=== PATIENT | male | born 1960 | race Two or more races ===

== ENCOUNTER 2017-10-01 09:31 | Emergency (ER) | payer OTHER ==
--- NOTE | 2017-10-01 11:23 | RAD ---
INDICATION: Atraumatic left foot pain and discoloration. COMPARISON: None. TECHNIQUE: 3 views of the left foot were obtained. FINDINGS: The adequately corticated bones are properly aligned. Enthesophyte is noted at the origin of the plantar fascia on the calcaneal tubercle. Joint spaces appear maintained. No fracture, dislocation or focal bony abnormality is seen. There is calcified atherosclerosis of the distal visualized portions of the posterior tibial and anterior tibial arteries as well as the dorsalis pedis artery. IMPRESSION: Normal radiograph of the left foot. If the patient's symptoms persist, follow-up imaging is recommended.
[2017-10-01 12:12] VITALS: BP 134/81
--- NOTE | 2017-10-01 15:51 | ED ---
Lower Extremity - HPI Summary HPI Summary: Patient presents to the ED with swelling to the bilateral feet x several months which is intermittent, worse after standing for long shifts and now with a slight discoloration into the L foot. He states the swelling reduces if he is not working. Denies history of PVD, PAD or cardiac history. Takes no medication. He states intermittently the feet will swell and cause some tenderness to the top of the foot. Denies pain in the sole of the foot. He is ambulating well today. VS stable and denies fevers. - History of Current Complaint Chief Complaint: EDExtremityLower Stated Complaint: FOOT INJURY Time Seen by Provider: 10/01/17 09:36 Hx Obtained From: Patient Severity Initially: Moderate Severity Currently: Moderate Pain Intensity: 1 Pain Scale Used: 0-10 Numeric Timing: Constant Location: Is Discrete @ - today at the left foot and ankle diffuse with slight swelling Associated Signs And Symptoms: Positive: Swelling, Bruising Aggravating Factor(s): Standing, Ambulation Alleviating Factor(s): Rest Able to Bear Weight: Yes - Risk Factors Gout Risk Factors: Age Over 40, Male DVT Risk Factors: Negative - Allergies/Home Medications Allergies/Adverse Reactions: Allergies Allergy/AdvReac Type Severity Reaction Status Date / Time No Known Allergies Allergy Verified 06/25/16 07:34 PMH/Surg Hx/FS Hx/Imm Hx Previously Healthy: Yes Endocrine/Hematology History: Reports: Hx Diabetes - Immunization History Hx Pertussis Vaccination: No Immunizations Up to Date: Yes Infectious Disease History: No Infectious Disease History: Denies: Traveled Outside the [place] in Last 30 Days - Social History Occupation: Employed Full-time Lives: With Family Alcohol Use: None Hx Substance Use: No Substance Use Type: Reports: None Hx Tobacco Use: No Smoking Status (MU): Never Smoked Tobacco Review of Systems Constitutional: Negative Negative: Fever, Chills, Fatigue Eyes: Negative Cardiovascular: Negative Gastrointestinal: Negative Genitourinary: Negative Positive: no symptoms reported, see HPI Positive: Arthralgia Positive: Bruising Neurological: Negative All Other Systems Reviewed And Are Negative: Yes Physical Exam Triage Information Reviewed: Yes Vital Signs On Initial Exam: Initial Vitals Temp Pulse Resp BP Pulse Ox 98.4 F 75 20 150/80 97 10/01/17 09:33 10/01/17 09:33 10/01/17 09:33 10/01/17 09:33 10/01/17 09:33 Vital Signs Reviewed: Yes Appearance: Positive: Well-Appearing, Well-Nourished Skin: Positive: Warm, Skin Color Reflects Adequate Perfusion Head/Face: Positive: Normal Head/Face Inspection Eyes: Positive: EOMI, CELESTE, Conjunctiva Clear Neck: Positive: Supple, Nontender, No Lymphadenopathy Respiratory/Lung Sounds: Positive: Clear to Auscultation, Breath Sounds Present Cardiovascular: Positive: RRR, Pulses are Symmetrical in both Upper and Lower Extremities Musculoskeletal: Positive: Pain @ - on deep palpation of the foot and ankle - tenderness Neurological: Positive: Speech Normal Psychiatric: Positive: Affect/Mood Appropriate AVPU Assessment: Alert - Kaylin Coma Scale Coma Scale Total: 15 Diagnostics - Vital Signs Vital Signs Temp Pulse Resp BP Pulse Ox 10/01/17 12:10 97.8 F 78 17 134/81 99 10/01/17 09:33 98.4 F 75 20 150/80 97 - Laboratory Lab Statement: Any lab studies that have been ordered have been reviewed, and results considered in the medical decision making process. Lower Extremity Course/Dx - Course Course Of Treatment: Patient notes to intermittent pain in bilateral feet after standing for long periods of time. Has not tried medication. Worsneing pain today at the left foot and ankle diffuse with slight swelling. Small amount of ecchymosis resembling dependent pooling. Denies injury. No evidence of claudication and not worse with walking. Pulses +2 bilaterally and cap refill < 2 sec. +1 swelling in L ankle and foot. He is encouraged follow up with PCP in 2-3 days to assess for PVD, and encouraged ibuprofen 600mg three times daily for swelling and compression stockings. Appears to be dependent swelling from standing for long periods of time. Denies calf pain and no palpable cords appreciated. Negative homans. - Diagnoses Provider Diagnoses: Pain and swelling of toe of left foot Discharge - Discharge Plan Condition: Stable Disposition: HOME Prescriptions: Ibuprofen TAB* [Motrin TAB* 600 MG] 600 mg PO Q8H PRN #30 tab PRN Reason: Pain Patient Education Materials: Tendinitis (ED) Referrals: Brianda Alcantar MD [Primary Care Provider] - Additional Instructions: Please see PCP regarding possible early vascular disease in the lower extremities Ice Elevation Ibuprofen 600mg three times daily as needed for pain and inflammation Swelling may occur after long periods of standing.
== END 2017-10-01 11:55 | disposition home or self-care (01) ==
LOC: ED 09:31
DX: M79.675 Pain in left toe(s) (principal); M79.672 Pain in left foot; M79.89 Other specified soft tissue disorders; E11.9 Type 2 diabetes mellitus without complications
CPT/HCPCS: 99282

== ENCOUNTER 2018-03-10 04:24 | Emergency (ER) | payer OTHER ==
[2018-03-10] MEDS ORDERED: Lidocaine 2% VISCOUS* 15 ML UDC PO ONE (04:56)
[2018-03-10] MEDS ORDERED: Al Hydrox/Mg Hydrox/Simet LIQ* 30 ML UDC PO ONE (04:56)
[2018-03-10] MEDS ORDERED: Dicyclomine CAP* 10 MG PO ONE (04:57)
[2018-03-10 06:12] VITALS: BP 128/79
--- NOTE | 2018-03-19 01:25 | ED ---
Gianfranco Patterson Julia, scribed for Padilla Archer MD on 03/10/18 at 0453 . Abdominal Pain/Male - HPI Summary HPI Summary: This patient is a 57 year old M presenting to [facility] with a chief complaint of constant upper abdominal pain with watery diarrhea since last night after eating a bad pork rib. Denies nausea and vomiting. Pain is 7/10 in severity. - History of Current Complaint Chief Complaint: EDAbdPain Stated Complaint: ABD PAIN Hx Obtained From: Patient Onset/Duration: Lasting Hours Pain Intensity: 7 Pain Scale Used: 0-10 Numeric Location: Other - upper Aggravating Factor(s): Food Associated Signs And Symptoms: Positive: Diarrhea. Negative: Nausea, Vomiting - Allergies/Home Medications Allergies/Adverse Reactions: Allergies Allergy/AdvReac Type Severity Reaction Status Date / Time No Known Allergies Allergy Verified 03/10/18 04:28 PMH/Surg Hx/FS Hx/Imm Hx Endocrine/Hematology History: Reports: Hx Diabetes EENT History: Denies: Hx Deafness Infectious Disease History: No Infectious Disease History: Denies: Traveled Outside the [place] in Last 30 Days - Family History Known Family History: Positive: Hypertension - Social History Alcohol Use: None Hx Substance Use: No Substance Use Type: Reports: None Hx Tobacco Use: No Smoking Status (MU): Never Smoked Tobacco Review of Systems Negative: Fever Positive: Abdominal Pain, Diarrhea. Negative: Vomiting, Nausea All Other Systems Reviewed And Are Negative: Yes Physical Exam - Summary Physical Exam Summary: Appearance: Well-appearing, Well-nourished, lying in bed comfortably Skin: Warm, dry, no obvious rash Eyes: sclera anicteric, no conjunctival pallor ENT: mucous membranes moist, pharynx appears normal Neck: Supple, nontender Respiratory: Clear to auscultation, no signs of respiratory distress Cardiovascular: Normal S1, S2. No murmurs. Normal distal pulses in tibial and radial bilaterally. Abdomen: Soft, nontender, normal active bowel sounds present, benign Musculoskeletal: Normal, Strength/ROM Intact Neurological: A&Ox3, awake and alert, mentation is normal, speech is fluent and appropriate Psychiatric: affect is normal, does not appear anxious or depressed Triage Information Reviewed: Yes Vital Signs On Initial Exam: Initial Vitals Temp Pulse Resp BP Pulse Ox 97.6 F 81 16 146/79 95 03/10/18 04:25 03/10/18 04:25 03/10/18 04:25 03/10/18 04:25 03/10/18 04:25 Vital Signs Reviewed: Yes Diagnostics - Vital Signs Vital Signs Temp Pulse Resp BP Pulse Ox 03/10/18 04:25 97.6 F 81 16 146/79 95 - Laboratory Lab Statement: Any lab studies that have been ordered have been reviewed, and results considered in the medical decision making process. Re-Evaluation - Re-Evaluation First Eval Change: Improved Abdominal Pain Fem Course/Dx - Diagnoses Provider Diagnoses: Abdominal pain, Diarrhea Discharge - Sign-Out/Discharge Documenting (check all that apply): Discharge/Admit/Transfer - Discharge Plan Condition: Good Disposition: HOME Patient Education Materials: Acute Diarrhea (ED) Print Language: [place] Referrals: Judi Nye MD [Primary Care Provider] - - Billing Disposition and Condition Condition: GOOD Disposition: HOME The documentation as recorded by the Gianfranco lozoya Julia accurately reflects the service I personally performed and the decisions made by , Padilla Archer MD.
== END 2018-03-10 06:17 | disposition home or self-care (01) ==
LOC: ED 04:24
DX: R10.10 Upper abdominal pain, unspecified (principal); R19.7 Diarrhea, unspecified
CPT/HCPCS: 99282; A9270-GY

== ENCOUNTER 2018-08-04 08:28 | Emergency (ER) | payer OTHER ==
--- NOTE | 2018-08-04 09:05 | ED ---
Throat Pain/Nasal Congestion - HPI Summary HPI Summary: Pt presents w/ throat pain x 3 days. Difficulty swallowing d/t pain. Associated sx of itchy eyes, B/L ear pain, NGUYEN - sinus pressure. Denies fever, chills, cough , CP, SOB, rinorrhea, sneezing. H/o similar throat pain in 2017 - dx'd w/ an infection - resolved. Has not tried medications or remedies. Denies recent illness and sick contacts. H/o DM type 2 - takes metformin - glucose typically 100's - has been 250 since sick. - History of Current Complaint Chief Complaint: EDThroatPain Time Seen by Provider: 08/04/18 08:35 Hx Obtained From: Patient - Allergies/Home Medications Allergies/Adverse Reactions: Allergies Allergy/AdvReac Type Severity Reaction Status Date / Time No Known Allergies Allergy Verified 08/04/18 08:33 Home Medications: Home Medications glipiZIDE [Glipizide Xl] 10 mg PO DAILY 08/04/18 [History Confirmed 08/04/18] metFORMIN* [Glucophage 1000 MG TAB *] 1,000 mg PO 0800,1700 08/04/18 [History Confirmed 08/04/18] PMH/Surg Hx/FS Hx/Imm Hx Previously Healthy: Yes Endocrine/Hematology History: Reports: Hx Diabetes - 100's Cardiovascular History: Denies: Hx Hypercholesterolemia, Hx Hypertension Sensory History: Denies: Hx Deafness Infectious Disease History: No Infectious Disease History: Denies: Traveled Outside the [place] in Last 30 Days - Family History Known Family History: Positive: Hypertension - Social History Occupation: Employed Full-time - construction Alcohol Use: None Hx Substance Use: No Substance Use Type: Reports: None Hx Tobacco Use: No Smoking Status (MU): Never Smoked Tobacco Review of Systems Constitutional: Negative Negative: Fever, Chills, Fatigue Eyes: Other - itchy eyes Negative: Drainage Positive: Sore Throat, Ear Ache Cardiovascular: Negative Respiratory: Negative Gastrointestinal: Negative Skin: Negative Positive: Headache Psychological: Normal All Other Systems Reviewed And Are Negative: Yes Physical Exam Triage Information Reviewed: Yes Vital Signs On Initial Exam: Initial Vitals Temp Pulse Resp BP Pulse Ox 97.2 F 79 16 133/84 96 08/04/18 08:31 08/04/18 08:31 08/04/18 08:31 08/04/18 08:31 08/04/18 08:31 Vital Signs Reviewed: Yes Appearance: Positive: No Pain Distress, Well-Nourished, Ill-Appearing - appears mildly fatigued Skin: Positive: Warm, Skin Color Reflects Adequate Perfusion, Dry - no rash Head/Face: Positive: Normal Head/Face Inspection Eyes: Positive: Normal, EOMI, CELESTE, Other: - no d/c; no lid swelling. Negative : Conjunctiva Inflammed ENT: Positive: Hearing grossly normal, Pharyngeal erythema - cobblestoning, Nasal congestion - minor, TMs normal, Uvula midline. Negative: Nasal drainage, Tonsillar exudate - tonsils +1-2; erythematous irritation - no toy edema, no exudates, no lesions, Trismus, Muffled voice Dental: Negative: Abscess @ Neck: Positive: Supple, No Lymphadenopathy, Tenderness @ - anterior cc LN's Respiratory/Lung Sounds: Positive: Clear to Auscultation, Breath Sounds Present. Negative: Rales, Rhonchi, Wheezes Cardiovascular: Positive: Normal, RRR, S1, S2 Abdomen Description: Positive: Nontender, No Organomegaly, Soft Bowel Sounds: Positive: Present Musculoskeletal: Positive: Normal, Strength/ROM Intact Neurological: Positive: Normal, Alert, Oriented to Person Place, Time, CN Intact II-III Psychiatric: Positive: Normal Diagnostics - Vital Signs Vital Signs Temp Pulse Resp BP Pulse Ox 08/04/18 08:31 97.2 F 79 16 133/84 96 - Laboratory Lab Statement: Any lab studies that have been ordered have been reviewed, and results considered in the medical decision making process. EENT Course/Dx - Course Course Of Treatment: Neg strep - supportive care. F/u w/ PCP. Continue to monitor glucose levels - if worse, seek medical attention. Reviewed danger s/ sx of when to return to ED - pt voices understanding - Diagnoses Provider Diagnoses: Pharyngitis with viral syndrome Discharge - Sign-Out/Discharge Documenting (check all that apply): Patient Departure - Discharge Plan Condition: Stable Disposition: HOME Patient Education Materials: Pharyngitis (ED) Forms: *Work Release Referrals: Judi Nye MD [Primary Care Provider] - Additional Instructions: You appear to have a viral respiratory infection. See education handout for details and may try remedies below for relief: Nasal wash (netti pot or saline spray) Salt water throat gargles 2 x day Drink you body weight in ounces of water every day Sleep 8+ hours per night Avoid Dairy and sugar Hot herbal/decaf tea with lemon & honey Chicken broth (preferably organic, free range chicken) Humidifier in house, but especially near bed at night Keep home temperature at 68F or less to reduce dryness Use cough drops/throat lozenges - sugar free Try a facial steam with or without eucalyptus essential oil or James's Vapor rub for congestion Avoid smoke, candles, perfumes, colognes, scented soaps/detergents , air fresheners and cleaning chemicals as these can cause airway irritation and trigger coughing *If sugar levels remain elevated or increase, seek medical attention *If you feel tired, develop a fever, can't swallow, have difficulty breathing, return to the ED - Billing Disposition and Condition Condition: STABLE Disposition: Home
[2018-08-04 10:24] VITALS: BP 123/71
== END 2018-08-04 10:23 | disposition home or self-care (01) ==
LOC: ED 08:28
DX: B34.9 Viral infection, unspecified (principal); E11.8 Type 2 diabetes mellitus with unspecified complications; Z79.84 Long term (current) use of oral hypoglycemic drugs
CPT/HCPCS: 87651; 99282

== ENCOUNTER 2019-06-24 08:32 | Emergency (ER) | payer OTHER ==
[2019-06-24] MEDS ORDERED: Ketorolac INJ* 30 MG/ML 1 ML VIAL IV PUSH ONE (09:34)
[2019-06-24] MEDS ORDERED: Famotidine IV* 10 MG/ML 2 ML (20 mg) IV SLOW PU ONE (09:34)
--- NOTE | 2019-06-24 09:36 | ED ---
Abdominal Pain/Male - HPI Summary HPI Summary: This patient is a 58 year old M presenting to ED with a chief complaint of epigastric pain since yesterday after eating chilies. He began to develop a headache this morning. The patient rates the epigastric pain 5/10 in severity. Symptoms aggravated by nothing. Symptoms alleviated by nothing. Patient reports headache (rated 2/10 in severity) and mild nausea. Patient denies vomiting, shortness of breath, chest pain, and palpitations. - History of Current Complaint Chief Complaint: EDAbdPain Stated Complaint: ABD PAIN Time Seen by Provider: 06/24/19 09:22 Hx Obtained From: Patient Onset/Duration: Gradual Onset, Lasting Days - Since yesterday, Still Present, Worse Since - Developed headache Timing: Constant, Lasting Days - Since yesterday Severity Initially: Mild Severity Currently: Moderate Pain Intensity: 5 Pain Scale Used: 0-10 Numeric Location: Epigastric Aggravating Factor(s): Nothing Alleviating Factor(s): Nothing Associated Signs And Symptoms: Positive: Negative - chest pain, shortness of breath, palpitations, Nausea, Other - Headache. Negative: Vomiting - Allergies/Home Medications Allergies/Adverse Reactions: Allergies Allergy/AdvReac Type Severity Reaction Status Date / Time No Known Allergies Allergy Verified 06/24/19 08:38 Home Medications: Home Medications Ibuprofen TAB* [Motrin TAB* 600 MG] 600 mg PO Q8H PRN 06/24/19 [History Confirmed 06/24/19] PMH/Surg Hx/FS Hx/Imm Hx Endocrine/Hematology History: Reports: Hx Diabetes - 100's Cardiovascular History: Reports: Hx Hypertension Denies: Hx Hypercholesterolemia Sensory History: Denies: Hx Deafness - Surgical History Surgery Procedure, Year, and Place: denies Infectious Disease History: No Infectious Disease History: Denies: Traveled Outside the [place] in Last 30 Days - Family History Known Family History: Positive: Hypertension, Diabetes - Social History Alcohol Use: None Hx Substance Use: No Substance Use Type: Reports: None Hx Tobacco Use: No Smoking Status (MU): Never Smoked Tobacco Review of Systems Negative: Palpitations, Chest Pain Negative: Shortness Of Breath Positive: Abdominal Pain - Epigastric, Nausea. Negative: Vomiting All Other Systems Reviewed And Are Negative: Yes Physical Exam - Summary Physical Exam Summary: VITAL SIGNS: Reviewed. GENERAL: Patient is a well-developed and nourished male who is lying comfortable in the stretcher. Patient is not in any acute respiratory distress. HEAD AND FACE: Normocephalic and atraumatic. EYES: PERRLA, EOMI x 2, No injected conjunctiva. EARS: Hearing grossly intact. Ear canals and tympanic membranes are WNL. MOUTH: Oropharynx within normal limits. NECK: Supple, trachea is midline, no adenopathy, no JVD. CHEST: Symmetric, no tenderness at palpation. LUNGS: Clear to auscultation bilaterally. No wheezing or crackles. CVS: RRR, S1 and S2 present, no murmurs or gallops appreciated. ABDOMEN: Mild epigastric tenderness EXTREMITIES: FROM in all major joints, no edema, no cyanosis or clubbing. NEURO: Alert and oriented x 3. No acute neurological deficits. Speech is normal. SKIN: Dry and warm. Triage Information Reviewed: Yes Vital Signs On Initial Exam: Initial Vitals Temp Pulse Resp BP Pulse Ox 97.6 F 67 16 157/85 96 06/24/19 08:34 06/24/19 08:34 06/24/19 08:34 06/24/19 08:34 06/24/19 08:34 Vital Signs Reviewed: Yes Diagnostics - Vital Signs Vital Signs Temp Pulse Resp BP Pulse Ox 06/24/19 08:34 97.6 F 67 16 157/85 96 - Laboratory Result Diagrams: 06/24/19 09:46 06/24/19 09:46 Lab Statement: Any lab studies that have been ordered have been reviewed, and results considered in the medical decision making process. - Radiology Abdomen XR Radiology Interpretation Completed By: Radiologist Summary of Radiographic Findings: 1. NO EVIDENCE FOR OBSTRUCTION. 2. MODERATE TO LARGE AMOUNT RETAINED STOOL. Dr. Tran has reviewed this radiology report. - EKG 0942 Cardiac Rate: NL - 60 BPM EKG Rhythm: Sinus Rhythm ST Segment: Normal Ectopy: None Summary of EKG Findings: NSR at [address] elevations. Re-Evaluation - Re-Evaluation First Eval Re-Evaluation Time: 11:31 Change: Improved Comment: With treatment, patient reports feeling better. Discussed results with patient. Patient will be discharged home with dx of epigastric pain and headache. Patient understands and agrees with this plan. Abdominal Pain Male Course/Dx - Course Assessment/Plan: Blood test results without any significant abnormality except for platelets 141, glucose was 213 and total protein 6.3. Abdomen x-ray impression: No evidence for obstruction. Moderate to large amount of retained stool. I believe that the patients symptoms are secondary to gastritis secondary to spicy food. In the ED course the patient was given Toradol for the headache which resolved his headache. Also he was given Pepcid and the epigastric burning resolved. The patient was observed for a couple hours in the ED and the symptoms did not return. Therefore the patient will be discharged home with follow-up with primary care physician. The patient is hemodynamically stable alert oriented 3. I discussed all the findings and test results with the patient. Patient was instructed to return to the emergency room immediately if any of the symptoms return worsens. Plan of care was discussed with the patient and understands and agrees. All questions were answered at patient satisfaction. There were no further complaints or concerns. Lung exam before discharge: CTA B/L. Good air exchange. No wheezing or crackles heard. CVS: S1 and S2 present. No murmurs appreciated. Patient is alert and oriented x 3. Patient is hemodynamically stable. Patient will be discharged home with follow up PCP in the next 2-3 days - Diagnoses Provider Diagnoses: Epigastric pain, Headache Discharge ED - Sign-Out/Discharge Documenting (check all that apply): Patient Departure - Discharge Patient Received Moderate/Deep Sedation with Procedure: No - Discharge Plan Condition: Stable Disposition: HOME Prescriptions: Omeprazole CAP (NF) [Prilosec CAP* 20 MG] 20 mg PO BID #30 cap.dr Patient Education Materials: Acute Headache (ED), Epigastric Pain (ED) Referrals: Judi Nye MD [Primary Care Provider] - 3 Days Additional Instructions: FOLLOW UP WITH YOUR PRIMARY CARE PROVIDER WITHIN ONE WEEK. RETURN TO THE ED FOR ANY WORSENING OR NEW SYMPTOMS. - Billing Disposition and Condition Condition: STABLE Disposition: Home - Attestation Statements Document Initiated by Scribe: Yes Documenting Scribe: David Glez Provider For Whom Elo is Documenting (Include Credential): Sung Tran MD Scribe Attestation: David Patterson, scribed for Sung Tran MD on 06/24/19 at 1830. Scribe Documentation Reviewed: Yes Provider Attestation: The documentation as recorded by the David lozoya accurately reflects the service I personally performed and the decisions made by me, Sung Tran MD Status of Scribe Document: Viewed
[2019-06-24 09:56] LABS: ABS Basophils 0.1 10^3/ul (0-0.2); ABS Eosinophils 0.2 10^3/ul (0-0.6); ABS Lymphocytes 1.1 10^3/ul (1.0-4.8); ABS Monocytes 0.5 10^3/ul (0-0.8); ABS Neutrophils 3.7 10^3/ul (1.5-7.7); Eosinophil % 3.7 %; Hematocrit 42 % (42-52); Hemoglobin 14.2 g/dL (14.0-18.0); Lymphocyte % 20.5 %; Mean Corpuscular HGB Conc 34 g/dL (31-36); Mean Corpuscular Hemoglobin 29 pg (27-31); Mean Corpuscular Volume 85 fL (80-94); Mean Platelet Volume 8.5 fL (7.4-10.4); Platelet Count 141 10^3/uL (150-450); Red Blood Count 4.93 10^6 /uL (4.18-5.48); Red Cell Distribution Width 14 % (10-15); White Blood Count 5.5 10^3/uL (3.5-10.8)
[2019-06-24 10:26] LABS: Albumin 4.1 g/dL (3.2-5.2); Albumin/Globulin Ratio 1.9 (1-3); BUN/Creatinine Ratio 22.8 (8-20); C Reactive Protein 1.04 mg/L (<8.01); Calcium 9.1 mg/dL (8.6-10.3); EGFR African American 178.3 (>60); EGFR Non-African American 147.3 (>60); Globulin 2.2 g/dL (2-4); Potassium 4.3 mmol/L (3.5-5.0); Total Bilirubin 0.5 mg/dL (0.2-1.0); Total Protein 6.3 g/dL (6.4-8.9)
[2019-06-24 12:40] LABS: Urine Appearance Clear; Urine Bacteria Absent (Absent); Urine Bilirubin Negative (Negative); Urine Blood 1+ (Negative); Urine Color Yellow; Urine Glucose 1+(50 mg/dL) (Negative); Urine Ketones Negative (Negative); Urine Nitrite Negative (Negative); Urine Protein Negative (Negative); Urine Red Blood Cell Trace(0-2/hpf) (Absent); Urine Specific Gravity 1.018 (1.010-1.030); Urine Urobilinogen Negative (Negative); Urine White Blood Cell Trace(0-5/hpf) (Absent)
[2019-06-24 12:59] VITALS: BP 123/78
== END 2019-06-24 13:00 | disposition home or self-care (01) ==
LOC: ED 08:32
DX: R10.13 Epigastric pain (principal); R51 Headache; E11.9 Type 2 diabetes mellitus without complications; I10 Essential (primary) hypertension; Z79.84 Long term (current) use of oral hypoglycemic drugs; Z79.899 Other long term (current) drug therapy
CPT/HCPCS: 36415; 74019; 80053; 81003; 81015; 82150; 83605; 83690; 84484; 85025; 86140; 87086; 93005; 96374; 96375; 99283; J1885